=== PATIENT | male | born 1960 | race Caucasian/White ===

== ENCOUNTER 2017-10-26 20:31 | Emergency (ER) | payer OTHER ==
[2017-10-26 20:36] VITALS: TEMP 98.3; BMI 28.2
--- NOTE | 2017-10-26 20:37 | PDOC ---
Rapid Medical Evaluation Time Seen by Provider: 10/26/17 20:33 Medical Evaluation: Allergies Allergy/AdvReac Type Severity Reaction Status Date / Time No Known Allergies Allergy Verified 04/18/14 09:00 10/26/17 20:33 Pt. presents with low back pain and states he is unable to walk without assistance. Hx of herniated discs, nerve impingement in the lower back. Pt now walking with a cane. No saddle anesthesia, bladder and bowel incontinence. Pain made better by sitting. Taking alieve at home with little relief. Exam: sitting in wheel chair, walking with limp even with the cane. Orders: Nothing Pt. to proceed to ED for further evaluation
--- NOTE | 2017-10-26 20:47 | PDOC ---
History of Present Illness - History of Present Illness Initial Comments: 10/26/17 21:38 Patient is a 57 M, with PMHx of, HTN, HLD Type 1 diabetes, herniated lumbar discs, who presents to the ED for difficulty ambulating. Patient present with lower back pain for 2 weeks and states that he is unable to walk without assistance . He states that when he walks, he feels off-balance. He states that his back pain begins at his sides and radiates to his buttoxs. He states that he has an appointment tomorrow with Dr. Clinton, his neurosurgeon in [place]. Dr. Esposito came in to evaluate him with the possibility of needing surgery. Patient normally ambulates with a cane. He denies numbness and tingling in his LE, denies weakness. He denies dysuria, hematuria, bladder or bowel incontinence. Surgical Hx: Neck laminectomy (2004) Stencil Inspector: Dr. Carlson. PCP: Dr. Marcus <Janette Claros - Last Filed: 10/26/17 21:49> - General History Source: Patient Exam Limitations: No Limitations <Oriana Vargas - Last Filed: 10/28/17 15:25> - General Chief Complaint: Back Pain Stated Complaint: FATIGUE Time Seen by Provider: 10/26/17 20:33 Past History <Janette Claros - Last Filed: 10/26/17 21:49> - Past Medical History COPD: No Diabetes: Yes HTN: Yes Hypercholesterolemia: Yes - Surgical History Neurologic Surgery: Yes (2004 LAMINECTOMY) - Suicide/Smoking/Psychosocial Hx Smoking History: Never smoked Number of Cigarettes Smoked Daily: 4 Hx Alcohol Use: No Drug/Substance Use Hx: (HOOKAH) Substance Use Type: None <Oriana Vargas - Last Filed: 10/28/17 15:25> - Past Medical History Allergies/Adverse Reactions: Allergies Allergy/AdvReac Type Severity Reaction Status Date / Time No Known Allergies Allergy Verified 10/26/17 20:34 Home Medications: Ambulatory Orders Folic Acid - 1 mg PO DAILY 05/16/13 Insulin Glargine,Hum.rec.anlog [Lantus Solostar PEN -] 45 units SQ DAILY Invocana 150 mg PO DAILY 05/16/13 Ramipril [Altace] 5 mg PO DAILY 05/16/13 Rosuvastatin Calcium [Crestor] 10 mg PO DAILY 05/16/13 Aspirin [ASA -] 162 mg PO DAILY #0 03/07/14 Review of Systems - Review of Systems Comments:: 10/26/17 21:46 GENERAL/CONSTITUTIONAL: No: fever, chills, weakness, loss of appetite. HEAD, EYES, EARS, NOSE AND THROAT: No: change in vision, ear pain, discharge, sore throat, throat swelling. CARDIOVASCULAR: No: chest pain, lightheadedness, palpitations, syncope RESPIRATORY: No: cough, shortness of breath, wheezing, hemoptysis, stridor. GASTROINTESTINAL: No: nausea, vomiting, abdominal cramping, diarrhea, rectal bleeding, constipation. GENITOURINARY: No: dysuria, hematuria, frequency, urgency, flank pain. MUSCULOSKELETAL: +back pain No: neck pain SKIN: No: lesions, pallor, rash or easy bruising. NEUROLOGIC: No: headache, vertigo, paresthesias, weakness ENDOCRINE: No: unexplained weight gain or loss HEMATOLOGIC/LYMPHATIC: No: anemia, easy bleeding, swelling nodes <Janette Claros - Last Filed: 10/26/17 21:49> *Physical Exam - Vital Signs Last Vital Signs Temp Pulse Resp BP Pulse Ox 98.3 F 105 H 18 169/90 98 10/26/17 20:34 10/26/17 20:34 10/26/17 20:34 10/26/17 20:34 10/26/17 20:34 - Physical Exam Comments: 10/26/17 21:40 GENERAL: The patient is in no acute distress. HEAD: Normal with no signs of trauma. EYES: PERRLA, EOMI, sclera anicteric, conjunctiva clear. LUNGS: Breath sounds equal, clear to auscultation bilaterally. No wheezes, and no crackles. EXTREMITIES: Normal range of motion, no edema. No clubbing or cyanosis. No erythema, or tenderness. NEUROLOGICAL: Cranial nerves II through XII grossly intact. Normal speech. No focal neurological deficits. MUSCULOSKELETAL: Lumbar tenderness to palpation, radiates to right buttox. No weakness to hip, flexion, dorsi or plantar flexion, knee extension or flexion. 5/5 strength, 5/5 EHL, Sensation intact and equal b/l. SKIN: hyperpigmented lesions on LE. Warm, Dry, normal turgor. <Janette Claros - Last Filed: 10/26/17 21:49> - Vital Signs Last Vital Signs Temp Pulse Resp BP Pulse Ox 98.3 F 105 H 18 169/90 98 10/26/17 20:34 10/26/17 20:34 10/26/17 20:34 10/26/17 20:34 10/26/17 20:34 <Oriana Vargas - Last Filed: 10/28/17 15:25> Medical Decision Making - Medical Decision Making 10/26/17 21:30 Mr Laboy is a 57 yo M with a history of IDDM, HTN, HLD, chronic back pain Pt pain has been worsening over the past 2 weeks At its worse today No trauma No fevers or chills No IVDU No bowel or bladder incontinence No weakness of the legs No sensory deficits Pt seen by Dr Valdez in the ER He states pt can be discharged to home He will be followed as an outpatient Clinical Impression: lumbar disc herniations, initial presentation <Oriana Vargas - Last Filed: 10/28/17 15:25> *DC/Admit/Observation/Transfer - Attestations Scribe Attestion: 10/26/17 21:49 Documentation prepared by Janette Claros, acting as medical nurse for Oriana Vargas MD. <Janette Claros - Last Filed: 10/26/17 21:49> - Discharge Dispostion Decision to Admit order: No <Oriana Vargas - Last Filed: 10/28/17 15:25> Diagnosis at time of Disposition: Back pain Qualifiers: Back pain location: low back pain Chronicity: chronic Back pain laterality: right Sciatica presence: with sciatica Sciatica laterality: sciatica of right side Qualified Code(s): M54.41 - Lumbago with sciatica, right side - Discharge Dispostion Disposition: HOME Condition at time of disposition: Stable - Referrals Referrals: Dante Marcus [Primary Care Provider] - Jamie Esposito MD, FAANS [Staff Physician] - - Patient Instructions Printed Discharge Instructions: DI for Low Back Pain Additional Instructions: PLEASE FOLLOW UP WITH DR ABDI DUNBAR FOR OUTPATIENT WORK UP RETURN TO THE ER FOR ANY OTHER CONCERNS OR COMPLAINTS - Post Discharge Activity
[2017-10-26 21:43] VITALS: BP 168/90; PULSE 98
--- NOTE | 2017-10-27 14:20 | CONSULT ---
Consult - text type - Consultation Consultation Note: NEUROSURGERY CONSULTATION Saran Laboy is a 57 year old male who has a history of several prior Cervical surgeries and a recent history of back and leg pains who presented to the [facility] on the evening of October 26, 2017 with a chief complaint of inability to walk due to progressive pains. The patient gives a history of a remote work related injury and having had several Cervical spine surgeries for this with the last being in 2004. He has persisting and progressing numbness and tingling in his hands and a loss of fine motor skills. He has been dropping things from his hands and has weakness in all extremities. He feels that his neck is stiff and also complains of chronic neck pains. He has pain in his back which radiates to both gluteal regions and proximally down the posterior aspect of his thighs. MRI Lumbar from March 2016 demonstrates suggested bilateral L5 pars defects with Grade 1 spondylolisthesis and pseudodisc bulging with bilateral L5S1 foraminal encroachment. There are Modic changes in the endplates of L5S1 and a relatively steep sacral slope. There is a CT of the Cervical spine from 2014 which demonstrates two, non-contiguous Cervical fusion constructs at approximately the C34 and C67 levels. There is pseudoarthrosis at C34. At C67, one of the Caudal screws is backing out and abuts the esophagus. There appears to be arthrodesis at C45 and C56 with no anterior instrumentation or radiographic markers suggesting interbody implants. The patient may have had ACDF at these levels and had the plate(s) removed. There is a calcified and hypertrophic mass of posterior longitudinal ligament which lies in the ventral spinal canal and causes some mass effect upon the Cervical spinal cord. This is especially concerning at the level of the C67 ACDF. MRI from 2016 of the Cervical spine demonstrates significant persisting spinal cord compression at the operated levels and a loss of Lordosis. Indeed, there appears to be an iatrogenic kyphosis. The subaxial Cervical spine is quite straight and even somewhat kyphotic. MRI Lumbar from an outside institution demonstrates the L5S1 spondylolysis with spondylolisthesis persists with mild progression of degenerative changes at other levels. I explained to the patient that he may benefit from L5S1 Vidal laminectomies with possible interbody cage/arthrodesis and L5S1 posterior lateral fusion with pedicle screws, however, his Cervical spine may warrant treatment first. I am concerned about his untreated Cervical spondylosis and kyphosis. The Cervical MRI demonstrates significant stenosis and persisting compression as well as kyphosis. Given the C34 pseudoarthrosis, persisting compression including above and below the operated levels, hardware backout and kyphosis, I feel that revision surgery may be warranted. Most likely the patient would benefit from a 2 stage decompression and fusion with Stage 1 consisting of a reoperative anterior Cervical approach for removal of hardware and exploration of spinal fusion with multilevel osteotomies and corpectomies and complete ventral decompression followed by reconstruction using PEEK cages and anterior plating. Stage 2 would consist of a platingposterior cervical approach with Exploration of his spinal fusion, C2-T2 laminectomies, C7 & T1 osteotomies and Correction of deformity with C2-T2 posterior instrumented fusion using pars, lateral mass and pedicle screws. The patient can be discharged from the ER and should have CT Cervical and MRI Cervical without contrast to further evaluate his current condition. I will see him in my office once these studies have been obtained. I reviewed warning signs which would warrant a return to the ER or expedited imaging/intervention and gave him contact information. All questions were answered.
== END 2017-10-26 21:45 | disposition home or self-care (01) ==
LOC: JERFT 20:31 → JER 20:31
DX: M54.41 Lumbago with sciatica, right side (principal); I10 Essential (primary) hypertension; E10.9 Type 1 diabetes mellitus without complications; Z79.4 Long term (current) use of insulin; E78.5 Hyperlipidemia, unspecified
CPT/HCPCS: 99281-25

== ENCOUNTER 2018-02-18 03:13 | Emergency (ER) | payer OTHER ==
[2018-02-18 03:18] VITALS: TEMP 98.1; BMI 29.9
--- NOTE | 2018-02-18 03:19 | PDOC ---
History of Present Illness - General Stated Complaint: CHEST PAIN Time Seen by Provider: 02/18/18 03:15 - History of Present Illness Initial Comments: 02/18/18 04:11 The patient is a 57 year old male with a history of HTN, HLD, DM who presents for evaluation of chest pain. The patient reports that he was smoking hooka when he experienced acute onset of 10/10 crushing substernal chest pain with radiation to his arm with associated lightheadedness prompting them to call EMS for presentation to the ED. The patient took 6 baby aspirin before EMS arrival and received 3 0.4 SL Nitro with some improvement in his symptoms. The patient reports that he had similar symptoms 2 years ago and underwent cardiac cath at that time with small vessel occlusion noted. The patient otherwise denies fevers, chills, nausea, vomiting, abdominal pain, or changes with urination or bowel movements. Past History - Past Medical History Allergies/Adverse Reactions: Allergies Allergy/AdvReac Type Severity Reaction Status Date / Time No Known Allergies Allergy Verified 10/26/17 20:34 Home Medications: Ambulatory Orders Folic Acid - 1 mg PO DAILY 05/16/13 Insulin Glargine,Hum.rec.anlog [Lantus Solostar PEN -] 45 units SQ DAILY Invocana 150 mg PO DAILY 05/16/13 Ramipril [Altace] 5 mg PO DAILY 05/16/13 Rosuvastatin Calcium [Crestor] 10 mg PO DAILY 05/16/13 Aspirin [ASA -] 162 mg PO DAILY #0 03/07/14 COPD: No Diabetes: Yes HTN: Yes Hypercholesterolemia: Yes - Surgical History Neurologic Surgery: Yes (2005 LAMINECTOMY) - Suicide/Smoking/Psychosocial Hx Smoking History: Never smoked Have you smoked in the past 12 months: No Number of Cigarettes Smoked Daily: 4 Information on smoking cessation initiated: No Hx Alcohol Use: No Drug/Substance Use Hx: No Substance Use Type: None Review of Systems - Review of Systems Comments:: 02/18/18 04:14 Constitutional: No fevers, chills, fatigue, malaise HEENT: No Rhinorrhea, nasal congestion, visual changes Cardiovascular: Chest pain, Lightheadedness. No syncope, palpitations, Respiratory: SOB. No Cough, Hemoptysis, Gastrointestinal: No Abdominal pain, Nausea, Vomiting, Constipation, Diarrhea, Melena Genitourinary: No Dysuria, Frequency, Urgency, Hesitancy, Hematuria, Flank pain Musculoskeletal: No Myalgia, arthralgia Skin: No rashes, itching, bruising, pallor Neurologic: No Headache, Dizziness, Numbness, Weakness, or Tingling Psychiatric: No Hallucinations. No SI or HI *Physical Exam - Vital Signs Last Vital Signs Temp Pulse Resp BP Pulse Ox 98.1 F 110 H 18 109/65 100 02/18/18 03:15 02/18/18 03:15 02/18/18 03:15 02/18/18 03:15 02/18/18 03:15 ED Treatment Course - LABORATORY CBC & Chemistry Diagram: 02/18/18 03:32 02/18/18 03:32 Medical Decision Making - Medical Decision Making 02/18/18 04:15 The patient is a 57 year old male with a history of HTN, HLD, DM who presents for evaluation of chest pain. EKG obtained from EMS demonstrates ST elevations in leads avR with ST depressions in leads II, aVF, V2-V5 concerning for STEMI. EKG obtained here demonstrates submilimeter elevations in leads aVR with hyperacute in leads V2-V5 after nitro and aspirin. We will obtain a a cbc, cmp , coags, troponin to evaluate further. We discussed the case with Dr. Prieto at [facility] who accepted the patient for transfer and recommends heparin bolus. We discussed the plan with the patient who is agreeable. The patient will be transferred to [facility] for concern for STEMI. 02/18/18 05:46 CBC is unremarkable. Troponin is elevated to 5. *DC/Admit/Observation/Transfer Diagnosis at time of Disposition: STEMI (ST elevation myocardial infarction) Qualifiers: Involved coronary artery: unspecified coronary artery Qualified Code(s): I21.3 - ST elevation (STEMI) myocardial infarction of unspecified site - Discharge Dispostion Disposition: TRANSFER ACUTE CARE/OTHER HOSP Condition at time of disposition: Guarded Decision to Admit order: No - Referrals Referrals: Dante Marcus [Primary Care Provider] - - Patient Instructions - Post Discharge Activity - Transfer to Acute Care Facility Receiving Facility: [facility]. Accepting Physician:: Dr. Prieto
[2018-02-18] MEDS ORDERED: HEPARIN NA (PORCINE) 5,000 UNITS/ML 1ML VIAL IVPUSH ONE (03:50)
[2018-02-18 03:54] LABS: BASO % 0.5 % (0-2.0); EOS % 0.1 % (0-4.5); HEMATOCRIT 47.6 % (35.4-49); HEMOGLOBIN 16.2 GM/dL (11.7-16.9); LYMPH % 8.7 % (8-40); MEAN CELL VOLUME 91.2 fl (80-96); MEAN PLT VOLUME 8.7 fl (7.5-11.1); MONO % 5.3 % (3.8-10.2); NEUT % 85.4 % (42.8-82.8); PLATELET COUNT 271 K/MM3 (134-434); RBC 5.22 M/mm3 (4.00-5.60); RDW 13.8 % (11.9-15.9); WHITE BLOOD COUNT 11.6 K/mm3 (4.0-10.0)
[2018-02-18] MEDS ORDERED: HEPARIN NA (PORCINE) 5,000 UNITS/ML 1ML VIAL ONE (04:03)
[2018-02-18 04:09] LABS: INR 1.04 (0.83-1.09); PROTHROMBIN TIME (PATIENT) 11.8 SEC (9.7-13.0)
[2018-02-18 04:12] LABS: ACTIVATED PTT 28.5 SECONDS (25.2-36.5)
[2018-02-18 04:29] VITALS: BP 104/64; PULSE 90
[2018-02-18 05:01] LABS: ALBUMIN 3.7 g/dl (3.4-5.0); ALK PHOS 64 U/L (45-117); ANION GAP 7 MMOL/L (8-16); BILIRUBIN,TOTAL 0.6 mg/dL (0.2-1); BLOOD UREA NITROGEN 17 mg/dL (7-18); CALCIUM 8.7 mg/dL (8.5-10.1); CHLORIDE 100 mmol/L (98-107); CO2 26 mmol/L (21-32); CREATININE 0.9 mg/dL (0.55-1.3); GLUCOSE,RANDOM 295 mg/dL (74-106); POTASSIUM 4.2 mmol/L (3.5-5.1); SGOT/AST 72 U/L (15-37); SGPT/ALT 44 U/L (13-61); SODIUM 133 mmol/L (136-145); TOT PROT 7.6 g/dl (6.4-8.2)
--- NOTE | 2018-02-18 05:38 | PDOC ---
Attending Attestation - Resident Resident Name: Javier Mulligan - ED Attending Attestation I have performed the following: I have examined & evaluated the patient, The case was reviewed & discussed with the resident, I agree w/resident's findings & plan, Exceptions are as noted - HPI HPI: 02/18/18 05:39 57-year-old male with a history of nonobstructive coronary artery disease, hypertension, hyperlipidemia, diabetes, smoking BIBEMS for 10/10 crushing chest pain radiating to the left arm that began 1 hour prior to arrival. Pain began after patient was smoking hookah. Family states he was very pale at the time and was clutching his chest. Patient took 6 baby aspirin and 2 sublingual nitroglycerin. He states he took 6 baby aspirin as the pain was very severe. EMS gave 1 SL nitro enroute. EMS reported twelve-lead EKG done in route with no ST elevations. They also reported patient was in atrial fibrillation that self resolved and now is in sinus tachycardia. On review of twelve-lead EKG done by paramedics, patient has a [address] elevation in aVR and inferiorolateral ST depressions. Patient denies any shortness of breath, fevers, chills, coughing. Reports similar pain 2 years ago for which he had a cardiac catheter at [facility] and was found to have some blockages, but did not get a stent. He states since that he was placed on cholesterol medication. He follows with cardiology at [facility] as an outpatient. Denies recent SOB, F/C, cough, trauma, abd pain, N/V/D. Denies drug use. NO recent travel or immobility. - Physicial Exam PE: 02/18/18 05:50 GENERAL: Awake, alert, and fully oriented, appears uncomfortable. +diaphoresis HEAD: No signs of trauma EYES: PERRLA, sclera anicteric, conjunctiva clear ENT: Moist mucosa NECK: Normal ROM, supple, no lymphadenopathy, JVD, or masses LUNGS: Breath sounds equal, clear to auscultation bilaterally. No wheezes, and no crackles HEART: Regular rate and rhythm, normal S1 and S2, no murmurs, rubs or gallops ABDOMEN: Soft, nontender, normoactive bowel sounds. No guarding, no rebound. No masses EXTREMITIES: Normal range of motion, no edema. No clubbing or cyanosis. No cords, erythema, or tenderness NEUROLOGICAL: Normal speech, cranial nerves intact, negative pronator drift, 5/ 5 strength in all 4 extremities, normal sensation to light touch in all 4 extremities, normal cerebellar exam SKIN: Warm, Dry, normal turgor, no rashes or lesions noted. - Critical Care Time Total Critical Care Time: 70 Critical Care Statement: The care of this patient involved high complexity decision making to prevent further life threatening deterioration of the patient 's condition and/or to evaluate & treat vital organ system(s) failure or risk of failure. - Medical Decision Making 02/18/18 05:54 57-year-old male with a history of nonobstructive CAD, hyperlipidemia, diabetes , hypertension presents to the emergency Department with an ST elevation CT. On repeat EKG here in the emergency department after 3 sublingual nitroglycerin and 6 baby aspirin, patient no longer has ST elevation but has hyperacute T waves. Story is highly concerning for acute coronary syndrome. Case discussed with [facility] form tamper operator Dr. Stern, pt accepted for transfer under Dr. Prieto. Per their recommendation, 4000units of heparin given, plavix held. Code red activated for expedited transfer. Plan explained to pt, son and , pt consents for transfer. Heart Score/ECG Review #1 02/18/18 05:53 EKG done by EMS reviewed. Reveals [address] elevation in aVR and reciprocal inferior lateral ST depressions. #2 02/18/18 05:53 Twelve-lead EKG was performed and reviewed by me. Sinus tachycardia, rate 102. Normal axis. No ST elevations. Hyperacute T waves in V2 through the for. Q-wave in lead 3. T wave inversion in leads 3 and aVF.
--- NOTE | 2018-02-18 08:07 | EKG ---
Test Reason : Blood Pressure : / mmHG Vent. Rate : 102 BPM Atrial Rate : 102 BPM P-R Int : 158 ms QRS Dur : 108 ms QT Int : 370 ms P-R-T Axes : 046 003 -04 degrees QTc Int : 482 ms SINUS TACHYCARDIA INFERIOR INFARCT , AGE UNDETERMINED ABNORMAL ECG WHEN COMPARED WITH ECG OF 18-APR-2014 10:10, INFERIOR INFARCT IS NOW PRESENT T WAVE AMPLITUDE HAS INCREASED IN ANTERIOR LEADS Confirmed by АНДРЕЙ PANG, NIDIA ([id number]) on 02/18/2018 8:06:34 AM Referred By: Confirmed By:NIDIA CHIANG MD
== END 2018-02-18 04:28 | disposition short-term general hospital (02) ==
LOC: JER 03:13
PROC: 3E033GC Introduction of Other Therapeutic Substance into Peripheral Vein, Percutaneous Approach (ICD-10-PCS; principal; 2018-02-18)
DX: I21.3 ST elevation (STEMI) myocardial infarction of unspecified site (principal); I10 Essential (primary) hypertension; E78.5 Hyperlipidemia, unspecified; E11.9 Type 2 diabetes mellitus without complications
CPT/HCPCS: 36415; 71045-TC-FY; 80053; 82550; 82553; 84484; 85025; 85610; 85730; 93005; 93010; 96374; 99282-25; J1644

== ENCOUNTER 2024-09-14 11:59 | Inpatient (IN) | payer OTHER ==
[2024-09-14] MEDS ORDERED: ACETAMINOPHEN INJECTION 100 ML ONE (12:44)
[2024-09-14] MEDS: ACETAMINOPHEN 1000 MG/100 ML BAG IVPB ONE (12:54)
[2024-09-14 15:03] LABS: ABSOLUTE IMMATURE GRANULOCYTES 0.03 x10^3/uL (0.0-0.031); BASOPHILS # 0.03 x10^3/uL (0.01-0.08); EOSINOPHIL % 0.5 % (0.8-7.0); EOSINOPHILS # 0.04 x10^3/uL (0.04-0.54); HEMATOCRIT 47.7 % (40.1-51.0); HEMOGLOBIN 15.7 g/dL (13.7-17.5); MCHC 32.9 g/dl (32.3-36.5); MEAN CELL VOLUME 92.3 fl (79.0-92.2); MEAN PLT VOLUME 9.9 fl (9.4-12.4); MONOCYTE # 0.45 x10^3/uL (0.30-0.82); MONOCYTE % 6.2 % (5.3-12.2); PLATELET COUNT 164 x10^3/uL (163-337); RDW 13.2 % (12.2-16.4)
[2024-09-14 15:04] LABS: INR 1.13 (0.83-1.09); PROTHROMBIN TIME (PATIENT) 12.4 SEC (9.7-13.0)
[2024-09-14 15:18] LABS: POTASSIUM 3.7 mmol/L (3.5-5.1)
[2024-09-14 15:19] LABS: CALCIUM 9.2 mg/dL (8.5-10.1)
[2024-09-14 15:21] LABS: ALBUMIN 3.5 g/dl (3.4-5.0); BLOOD UREA NITROGEN 17.3 mg/dL (7-18)
[2024-09-14 15:23] LABS: CREATININE 0.7 mg/dL (0.55-1.3)
[2024-09-14 15:24] LABS: BILIRUBIN,TOTAL 0.8 mg/dL (0.2-1)
[2024-09-14 18:25] LABS: MAGNESIUM 2.2 mg/dL (1.8-2.4)
[2024-09-14 18:29] LABS: PHOSPHOROUS 3.1 mg/dL (2.5-4.9)
[2024-09-14 18:34] LABS: N-TERMINAL BNP 259.7 pg/ml (5-125)
[2024-09-14 20:09] VITALS: BMI 25.9
[2024-09-14] MEDS: INSULIN ASPART SLIDING SCALE (NOVOLOG) 1 VIAL SQ SCH (21:47)
[2024-09-14] MEDS: PREGABALIN 50 MG CAPSULE PO SCH (21:48)
[2024-09-14] MEDS: METOPROLOL TARTRATE 50 MG TABLET (FP) PO SCH (21:48)
[2024-09-14] MEDS: HEPARIN NA (PORCINE) 5,000 UNITS/ML 1ML VIAL SQ SCH (21:48)
[2024-09-14] MEDS: ATORVASTATIN CA 80 MG TABLET (FP) PO SCH (21:48)
[2024-09-14] MEDS: INSULIN GLARGINE (LANTUS) 100 UNITS/ML UNITS SQ SCH (21:48)
[2024-09-15] MEDS: ZOLPIDEM TARTRATE 5 MG TABLET PO ONE (00:29)
[2024-09-15 06:49] LABS: ABSOLUTE IMMATURE GRANULOCYTES 0.02 x10^3/uL (0.0-0.031); BASOPHILS # 0.04 x10^3/uL (0.01-0.08); EOSINOPHILS # 0.13 x10^3/uL (0.04-0.54); HEMATOCRIT 48.2 % (40.1-51.0); HEMOGLOBIN 15.8 g/dL (13.7-17.5); MCHC 32.8 g/dl (32.3-36.5); MEAN CELL VOLUME 92.7 fl (79.0-92.2); MEAN PLT VOLUME 10.2 fl (9.4-12.4); MONOCYTE # 0.39 x10^3/uL (0.30-0.82); PLATELET COUNT 176 x10^3/uL (163-337); RDW 13.2 % (12.2-16.4)
[2024-09-15 07:33] LABS: POTASSIUM 3.8 mmol/L (3.5-5.1)
[2024-09-15 07:35] LABS: CALCIUM 8.6 mg/dL (8.5-10.1)
[2024-09-15 07:36] LABS: ALBUMIN 3.2 g/dl (3.4-5.0); BLOOD UREA NITROGEN 14.2 mg/dL (7-18)
[2024-09-15 07:39] LABS: CREATININE 0.6 mg/dL (0.55-1.3)
[2024-09-15 07:40] LABS: BILIRUBIN,TOTAL 0.8 mg/dL (0.2-1)
[2024-09-15 07:41] LABS: TOT PROT 6.8 g/dl (6.4-8.2)
[2024-09-15 08:14] LABS: PH,URINE 7.5 (5.0-8.0); URINE APPEARANCE CLEAR; URINE BILIRUBIN NEGATIVE (NEGATIVE); URINE COLOR YELLOW; URINE GLUCOSE (UA) 3+ (NEGATIVE); URINE KETONE 1+ (NEGATIVE); URINE LEUK ESTERASE NEGATIVE (NEGATIVE); URINE NITRITE NEGATIVE (NEGATIVE); URINE PROTEIN NEGATIVE (NEGATIVE); URINE UROBILINOGEN 0.2 mg/dL (0.2-1.0)
[2024-09-15] MEDS: ACETAMINOPHEN 1000 MG/100 ML BAG IVPB PRN (10:09)
[2024-09-15] MEDS ORDERED: REGADENOSON 0.4 MG/5 ML PRE-FILLED SYRINGE IVPUSH ONE (13:38)
[2024-09-15] MEDS: REGADENOSON 0.4 MG/5 ML PRE-FILLED SYRINGE IVPUSH ONE (15:08)
[2024-09-15] MEDS: ceFAZolin SODIUM 1 GM VIAL IVPB ONE (16:45)
[2024-09-15] MEDS ORDERED: oxyCODONE HCL 5 MG TABLET PO PRN ×3 (18:24→18:53)
[2024-09-15] MEDS ORDERED: ACETAMINOPHEN INJECTION 100 ML ONE (18:25)
[2024-09-15] MEDS ORDERED: MAG HYDROX/AL HYDROX/SIMETH 30 ML UNIT-DOSE CUP PO PRN ×2 (18:31→18:53)
[2024-09-15] MEDS ORDERED: ONDANSETRON 4 MG/2 ML VIAL IVPUSH PRN ×2 (18:31→18:53)
[2024-09-15] MEDS ORDERED: LACTATED RINGERS SOLUTION 1,000 ML IV SCH (18:45)
[2024-09-15] MEDS: ACETAMINOPHEN 1000 MG/100 ML BAG IVPB ONE (18:51)
[2024-09-15] MEDS: ATORVASTATIN CA 80 MG TABLET (FP) PO SCH (21:35)
[2024-09-15] MEDS: METOPROLOL TARTRATE 50 MG TABLET (FP) PO SCH (21:36)
[2024-09-15] MEDS: SENNOSIDES/DOCUSATE COMBO (SENNA PLUS) TABLET (UD) PO SCH (21:36)
[2024-09-15] MEDS: PREGABALIN 50 MG CAPSULE PO SCH (21:36)
[2024-09-15] MEDS: INSULIN ASPART SLIDING SCALE (NOVOLOG) 1 VIAL SQ SCH (21:42)
[2024-09-15] MEDS ORDERED: PREGABALIN 50 MG CAPSULE PO SCH (22:00)
[2024-09-15] MEDS ORDERED: INSULIN ASPART SLIDING SCALE (NOVOLOG) 1 VIAL SQ SCH (22:00)
[2024-09-15] MEDS ORDERED: ATORVASTATIN CA 80 MG TABLET (FP) PO SCH (22:00)
[2024-09-15] MEDS ORDERED: METOPROLOL TARTRATE 50 MG TABLET (FP) PO SCH (22:00)
[2024-09-15] MEDS ORDERED: SENNOSIDES/DOCUSATE COMBO (SENNA PLUS) TABLET (UD) PO SCH (22:00)
[2024-09-16] MEDS ORDERED: CEFAZOLIN 2 GM in DEXTROSE 5%-WATER - 50 ML IVPB SCH (00:45)
[2024-09-16] MEDS ORDERED: CEFAZOLIN SODIUM 2 GM in DEXTROSE 5%-WATER 100 ML IVPB SCH (00:45)
[2024-09-16] MEDS: ACETAMINOPHEN 1000 MG/100 ML BAG IVPB PRN (01:07)
[2024-09-16] MEDS: CEFAZOLIN 2 GM/D5W 2 GM/50 ML ML IVPB SCH (01:25)
[2024-09-16] MEDS: LACTATED RINGERS SOLUTION 1,000 ML IV SCH (04:41)
[2024-09-16 06:46] LABS: ABSOLUTE IMMATURE GRANULOCYTES 0.03 x10^3/uL (0.0-0.031); BASOPHILS # 0.05 x10^3/uL (0.01-0.08); EOSINOPHIL % 2.6 % (0.8-7.0); EOSINOPHILS # 0.15 x10^3/uL (0.04-0.54); HEMATOCRIT 45.4 % (40.1-51.0); HEMOGLOBIN 14.6 g/dL (13.7-17.5); MCHC 32.2 g/dl (32.3-36.5); MEAN CELL VOLUME 94.2 fl (79.0-92.2); MEAN PLT VOLUME 9.9 fl (9.4-12.4); MONOCYTE # 0.57 x10^3/uL (0.30-0.82); PLATELET COUNT 158 x10^3/uL (163-337); RDW 13.6 % (12.2-16.4)
[2024-09-16 06:50] LABS: HEMATOCRIT 45.7 % (40.1-51.0); HEMOGLOBIN 14.7 g/dL (13.7-17.5); MCHC 32.2 g/dl (32.3-36.5); MEAN CELL VOLUME 93.6 fl (79.0-92.2); MEAN PLT VOLUME 10.1 fl (9.4-12.4); PLATELET COUNT 171 x10^3/uL (163-337); RDW 13.5 % (12.2-16.4)
[2024-09-16 07:08] LABS: POTASSIUM 3.7 mmol/L (3.5-5.1)
[2024-09-16 07:15] LABS: BLOOD UREA NITROGEN 12.5 mg/dL (7-18)
[2024-09-16 07:19] LABS: CREATININE 0.7 mg/dL (0.55-1.3)
[2024-09-16] MEDS: EMPAGLIFLOZIN (JARDIANCE) 25 MG TABLET PO SCH (07:25)
[2024-09-16] MEDS ORDERED: EMPAGLIFLOZIN (JARDIANCE) 25 MG TABLET PO SCH (10:00)
[2024-09-16] MEDS ORDERED: MULTIVITAMINS (DAILY MVI) TABLET (FP) PO SCH (10:00)
[2024-09-16] MEDS ORDERED: ENOXAPARIN NA (PORCINE) 40 MG/0.4 ML DISP.SYRIN SQ SCH (10:00)
[2024-09-16] MEDS ORDERED: PANTOPRAZOLE 40 MG TABLET PO SCH (10:00)
[2024-09-16] MEDS: PANTOPRAZOLE 40 MG TABLET PO SCH (11:04)
[2024-09-16] MEDS: ENOXAPARIN NA (PORCINE) 40 MG/0.4 ML DISP.SYRIN SQ SCH (11:40)
[2024-09-16] MEDS: MULTIVITAMINS (DAILY MVI) TABLET (FP) PO SCH ×2 (11:40→21:36)
[2024-09-16] MEDS ORDERED: INSULIN GLARGINE (LANTUS) 100 UNITS/ML UNITS SQ SCH ×2 (16:03→22:00)
[2024-09-16] MEDS: CLOPIDOGREL BISULFATE 75 MG TABLET (FP) PO SCH (16:49)
[2024-09-16] MEDS: INSULIN GLARGINE (LANTUS) 100 UNITS/ML UNITS SQ ONE (17:14)
[2024-09-16] MEDS: POLYETHYLENE GLYCOL (HEALTHYLAX) 3350 17 GM PACKET PO SCH (17:25)
[2024-09-16] MEDS: LIDOCAINE 5% TOPICAL PATCH TP ONE (21:50)
[2024-09-17] MEDS: INSULIN GLARGINE (LANTUS) 100 UNITS/ML UNITS SQ SCH (08:44)
[2024-09-17] MEDS: LIDOCAINE PATCH REMOVAL MC ONE (10:53)
[2024-09-17 12:25] LABS: ABSOLUTE IMMATURE GRANULOCYTES 0.02 x10^3/uL (0.0-0.031); BASOPHILS # 0.05 x10^3/uL (0.01-0.08); EOSINOPHIL % 1.7 % (0.8-7.0); EOSINOPHILS # 0.13 x10^3/uL (0.04-0.54); HEMATOCRIT 48.9 % (40.1-51.0); HEMOGLOBIN 16.1 g/dL (13.7-17.5); MCHC 32.9 g/dl (32.3-36.5); MEAN CELL VOLUME 91.7 fl (79.0-92.2); MEAN PLT VOLUME 9.6 fl (9.4-12.4); MONOCYTE # 0.65 x10^3/uL (0.30-0.82); MONOCYTE % 8.6 % (5.3-12.2); PLATELET COUNT 203 x10^3/uL (163-337); RDW 13.7 % (12.2-16.4)
[2024-09-17] MEDS: metFORMIN HCL 500 MG TABLET (FP) PO SCH (12:48)
[2024-09-17 12:50] LABS: CALCIUM 9.2 mg/dL (8.5-10.1)
[2024-09-17 12:54] LABS: CREATININE 0.5 mg/dL (0.55-1.3)
[2024-09-17] MEDS: EMPAGLIFLOZIN (JARDIANCE) 25 MG TABLET PO SCH (13:57)
[2024-09-17] MEDS: LIDOCAINE 5% TOPICAL PATCH TP SCH (14:00)
[2024-09-17] MEDS ORDERED: metFORMIN HCL 500 MG TABLET (FP) PO SCH (16:30)
[2024-09-17] MEDS: MELATONIN 5 MG TABLETS PO PRN (21:11)
[2024-09-18 08:08] LABS: ABSOLUTE IMMATURE GRANULOCYTES 0.03 x10^3/uL (0.0-0.031); BASOPHILS # 0.03 x10^3/uL (0.01-0.08); EOSINOPHIL % 1.5 % (0.8-7.0); EOSINOPHILS # 0.08 x10^3/uL (0.04-0.54); HEMATOCRIT 44.8 % (40.1-51.0); HEMOGLOBIN 14.7 g/dL (13.7-17.5); MCHC 32.8 g/dl (32.3-36.5); MEAN CELL VOLUME 93.1 fl (79.0-92.2); MEAN PLT VOLUME 9.6 fl (9.4-12.4); MONOCYTE # 0.68 x10^3/uL (0.30-0.82); MONOCYTE % 12.6 % (5.3-12.2); PLATELET COUNT 171 x10^3/uL (163-337); RDW 13.5 % (12.2-16.4)
[2024-09-18 08:31] LABS: POTASSIUM 3.7 mmol/L (3.5-5.1)
[2024-09-18 08:33] LABS: BLOOD UREA NITROGEN 17.9 mg/dL (7-18); CALCIUM 8.9 mg/dL (8.5-10.1)
[2024-09-18 08:37] LABS: CREATININE 0.4 mg/dL (0.55-1.3)
[2024-09-18] MEDS ORDERED: EMPAGLIFLOZIN (JARDIANCE) 25 MG TABLET PO SCH (10:00)
[2024-09-18] MEDS: ZOLPIDEM TARTRATE 5 MG TABLET PO PRN (21:51)
[2024-09-19] MEDS ORDERED: INSULIN ASPART SLIDING SCALE (NOVOLOG) 1 VIAL SQ SCH (16:30)
[2024-09-19] MEDS: metFORMIN HCL 500 MG TABLET (FP) PO SCH (17:45)
[2024-09-19] MEDS: INSULIN (NOVOLOG) ASPART 100 UNITS/ML 10ML VIAL SQ SCH (17:46)
[2024-09-19] MEDS: INSULIN ASPART SLIDING SCALE (NOVOLOG) 1 VIAL SQ SCH (17:47)
[2024-09-19] MEDS: MELATONIN 5 MG TABLETS PO PRN (22:11)
[2024-09-19] MEDS: ATORVASTATIN CA 80 MG TABLET (FP) PO SCH (22:11)
[2024-09-19] MEDS: METOPROLOL TARTRATE 50 MG TABLET (FP) PO SCH (22:12)
[2024-09-19] MEDS: PREGABALIN 50 MG CAPSULE PO SCH (22:12)
[2024-09-19] MEDS: LIDOCAINE PATCH REMOVAL MC SCH (22:23)
[2024-09-20] MEDS ORDERED: ACETAMINOPHEN 1000 MG/100 ML BAG IVPB PRN (00:15)
[2024-09-20 06:55] VITALS: BP 123/72; PULSE 72; RESP 16; TEMP 97.7
[2024-09-20] MEDS: EMPAGLIFLOZIN (JARDIANCE) 25 MG TABLET PO SCH (06:56)
[2024-09-20] MEDS ORDERED: RAMIPRIL 5 MG CAPSULE PO SCH (10:00)
[2024-09-20] MEDS: CLOPIDOGREL BISULFATE 75 MG TABLET (FP) PO SCH (10:16)
[2024-09-20] MEDS: RAMIPRIL 5 MG CAPSULE PO SCH (10:16)
[2024-09-20] MEDS: LIDOCAINE 5% TOPICAL PATCH TP SCH (10:17)
[2024-09-20] MEDS: ENOXAPARIN NA (PORCINE) 40 MG/0.4 ML DISP.SYRIN SQ SCH (10:17)
[2024-09-20] MEDS: POLYETHYLENE GLYCOL (HEALTHYLAX) 3350 17 GM PACKET PO SCH (10:17)
[2024-09-20] MEDS: INSULIN GLARGINE (LANTUS) 100 UNITS/ML UNITS SQ SCH (12:56)
== END 2024-09-20 13:53 | DRG 308 ==
LOC: JER 11:59 → JERBED 14:17 → UNDOADMIN 14:17 → JERBED 16:48 → J4S 16:57 → JASUSAT 16:57 → JERBED 16:57 → J4S 18:37
PROVIDERS: ADMIT Family Medicine; ATTEND Family Medicine
PROC: 0QS634Z Reposition Right Upper Femur with Internal Fixation Device, Percutaneous Approach (ICD-10-PCS; principal; 2024-09-15 15:30)
DX: S72.001A Fracture of unspecified part of neck of right femur, initial encounter for closed fracture (principal); I10 Essential (primary) hypertension; E78.5 Hyperlipidemia, unspecified; E10.9 Type 1 diabetes mellitus without complications; F17.210 Nicotine dependence, cigarettes, uncomplicated; M25.551 Pain in right hip; W19.XXXA Unspecified fall, initial encounter; Y93.9 Activity, unspecified; Y92.89 Other specified places as the place of occurrence of the external cause; Y99.9 Unspecified external cause status
CPT/HCPCS: 36415; 71045-TC-FY; 72100-TC-FY; 72170-TC-FY; 72192-TC; 73502-TC-RT-FY; 73552-TC-RT-FY; 76000-TC-FY; 78452-TC; 80048; 80053; 80061; 81003; 82962; 83036; 83735; 83880; 84100; 84439; 84443; 84460; 84484; 85025; 85027; 85610; 85730; 86376; 86800; 86850; 86900; 86901; 87635; 93005; 93010; 93017; 93306-TC; 94760; 97116-GP; 97162-GP; 99285-25; A9502; C1713; J0131; J1644; J2785